=== PATIENT | female | born 1950 | race Caucasian/White ===

== ENCOUNTER 2017-03-03 12:33 | Emergency (ER) | payer BC ==
[~2017-03-03] VITALS: Ht 157.5 cm; Wt 75.0 kg
[2017-03-03 13:26] LABS: EOS # 0.1 (0.04-0.40); EOS % 0.6 % (1.0-5.0); HEMATOCRIT 45.5 % (37.0-47.0); LYMPH# 1.3 (1.50-4.00); MEAN CELL VOLUME 89 fl (78-100); MEAN CORPUSCULAR HEMOGLOBIN 29 pg (27-31); MEAN CORPUSCULAR HGB CONC 33 g/dL (33-37); MEAN PLATELET VOLUME 8.7 fl (7.4-10.4); MONO # 0.8 (0.20-0.80); NEU # 6.6 (1.40-6.50); PLATELET COUNT 258 K/mm3 (130-400); RED BLOOD COUNT 5.13 M/mm3 (4.10-5.30); RED CELL DISTRIBUTION WIDTH 13.9 % (11.5-14.5); WHITE BLOOD COUNT 8.8 K/mm3 (4.8-10.8)
[2017-03-03] MEDS ORDERED: GLUCOPHAGE PO (13:35)
[2017-03-03 13:39] LABS: ALBUMIN 4.3 g/dL (3.5-5.0); BUN/CREATININE RATIO 22.3 (6.0-26.0); CALCIUM 9.3 mg/dL (8.4-10.2); TOTAL BILIRUBIN 0.7 mg/dL (0.2-1.3)
[2017-03-03] MEDS ORDERED: SERTRALINE50 MG PO (13:39)
[2017-03-03] MEDS ORDERED: HCTZ 25MG25 MG PO (13:40)
[2017-03-03] MEDS ORDERED: SIMVASTATIN20 M1 PO (13:40)
[2017-03-03] MEDS ORDERED: METOPROLOL SUCC50 M1 PO (13:41)
[2017-03-03] MEDS ORDERED: GUAIFEN-CODEIN118 ML PO (14:16)
[2017-03-03] MEDS ORDERED: PREDNISONE20 M1 PO (14:16)
[2017-03-03] MEDS ORDERED: CEFDINIR300 MG PO (14:16)
[2017-03-03] MEDS ORDERED: IPRATROPIUM BROM3 M1 IH (14:30)
[2017-03-03 16:23] VITALS: BP 146/66
== END 2017-03-03 15:35 | disposition home or self-care (01) ==
LOC: ED 12:33
PROVIDERS: Family Medicine
DX: J44.1 Chronic obstructive pulmonary disease with (acute) exacerbation (principal); R09.02 Hypoxemia; E11.9 Type 2 diabetes mellitus without complications; I10 Essential (primary) hypertension; Z87.891 Personal history of nicotine dependence; Z88.0 Allergy status to penicillin; Z79.84 Long term (current) use of oral hypoglycemic drugs
CPT/HCPCS: J0696; J1040

== ENCOUNTER 2017-03-05 12:31 | Inpatient (IN) | payer BC ==
[~2017-03-05] VITALS: Ht 157.5 cm; Wt 71.5 kg
[~2017-03-05 12:31] MED LIST: CEFDINIR300 MG PO; GLUCOPHAGE PO; GUAIFEN-CODEIN118 ML PO; HCTZ 25MG25 MG PO; IPRATROPIUM BROM3 M1 IH; METOPROLOL SUCC50 M1 PO; PREDNISONE20 M1 PO; SERTRALINE50 MG PO; SIMVASTATIN20 M1 PO
[2017-03-05 15:01] LABS: HEMATOCRIT 49.3 % (37.0-47.0); HEMOGLOBIN 15.9 g/dL (12.5-16.0); MEAN CELL VOLUME 90 fl (78-100); MEAN CORPUSCULAR HEMOGLOBIN 29 pg (27-31); MEAN CORPUSCULAR HGB CONC 32 g/dL (33-37); MEAN PLATELET VOLUME 9.7 fl (7.4-10.4); PLATELET COUNT 233 K/mm3 (130-400); RED BLOOD COUNT 5.51 M/mm3 (4.10-5.30); RED CELL DISTRIBUTION WIDTH 13.9 % (11.5-14.5); WHITE BLOOD COUNT 8.3 K/mm3 (4.8-10.8)
[2017-03-05 15:10] LABS: ALBUMIN 4.3 g/dL (3.5-5.0); BUN/CREATININE RATIO 38.3 (6.0-26.0); CALCIUM 9.6 mg/dL (8.4-10.2); POTASSIUM 4.2 mmol/L (3.6-5.0); TOTAL BILIRUBIN 0.6 mg/dL (0.2-1.3); TOTAL PROTEIN 8.3 g/dL (6.3-8.2)
[2017-03-05 15:43] LABS: LYMPHOCYTE 13 % (20-51); MONOCYTE 1 % (3-10); NEUTROPHILS 86 % (42-75)
[2017-03-05 16:01] LABS: URINE APPEARANCE HAZY; URINE COLOR YELLOW; URINE PROTEIN(semi-quant) TRACE mg/dL (NEGATIVE)
[2017-03-05 16:02] LABS: URINE BILIRUBIN NEGATIVE (NEGATIVE); URINE BLOOD TRACE (NEGATIVE); URINE GLUCOSE NEGATIVE (NEGATIVE); URINE KETONE 1+ (NEGATIVE); URINE LEUKOCYTE ESTERASE TRACE (NEGATIVE); URINE NITRATE NEGATIVE (NEGATIVE); URINE UROBILINOGEN NORMAL (NORMAL)
[2017-03-05 16:58] VITALS: BP 130/59
[2017-03-05 19:28] VITALS: BP 160/66
[2017-03-05 20:58] VITALS: BP 160/66
[2017-03-05 23:45] VITALS: BP 165/73
[2017-03-06 03:20] VITALS: BP 133/61
[2017-03-06 06:25] VITALS: BP 141/66
[2017-03-06 11:01] VITALS: BP 135/47
[2017-03-06 15:09] VITALS: BP 144/71
[2017-03-06 18:24] VITALS: BP 146/56
[2017-03-07] VITALS (7 sets, daily range): BP systolic 113–164; BP diastolic 52–74
[2017-03-07 09:53] LABS: HEMATOCRIT 45.2 % (37.0-47.0); HEMOGLOBIN 14.5 g/dL (12.5-16.0); LYMPH# 1.4 (1.50-4.00); MEAN CELL VOLUME 90 fl (78-100); MEAN CORPUSCULAR HEMOGLOBIN 29 pg (27-31); MEAN CORPUSCULAR HGB CONC 32 g/dL (33-37); MEAN PLATELET VOLUME 10.1 fl (7.4-10.4); MONO # 0.6 (0.20-0.80); NEU # 6.8 (1.40-6.50); PLATELET COUNT 245 K/mm3 (130-400); RED BLOOD COUNT 5.01 M/mm3 (4.10-5.30); RED CELL DISTRIBUTION WIDTH 13.6 % (11.5-14.5); WHITE BLOOD COUNT 8.8 K/mm3 (4.8-10.8)
[2017-03-07 09:59] LABS: BUN/CREATININE RATIO 45.3 (6.0-26.0); CALCIUM 9.3 mg/dL (8.4-10.2); POTASSIUM 3.9 mmol/L (3.6-5.0)
[2017-03-08 02:26] VITALS: BP 164/82
[2017-03-08 07:00] VITALS: BP 164/78
[2017-03-08 10:51] VITALS: BP 152/56
[2017-03-08 15:04] VITALS: BP 151/59
[2017-03-08 17:40] VITALS: BP 143/55
[2017-03-08 23:21] VITALS: BP 136/60
[2017-03-09 03:23] VITALS: BP 176/91
[2017-03-09 06:23] VITALS: BP 171/69
[2017-03-09 11:24] VITALS: BP 168/63
[2017-03-09 15:00] VITALS: BP 163/72
[2017-03-09 18:58] VITALS: BP 161/63
[2017-03-09 23:11] VITALS: BP 163/63
[2017-03-10 03:04] VITALS: BP 168/87
[2017-03-10 06:43] VITALS: BP 176/85
[2017-03-10 11:30] VITALS: BP 160/92
[2017-03-10 15:28] VITALS: BP 159/73
[2017-03-10 18:58] VITALS: BP 155/62
[2017-03-10 23:10] VITALS: BP 187/82
[2017-03-11 03:15] VITALS: BP 148/72
[2017-03-11 06:46] VITALS: BP 187/86
[2017-03-11 11:20] VITALS: BP 171/70
[2017-03-11] MEDS ORDERED: PREDNISONE20 M1 PO (14:48)
[2017-03-11] MEDS ORDERED: ALBUTEROL2.5 MG/3 M IH (14:49)
[2017-03-11] MEDS ORDERED: [UNRECOGNIZED DRUG - SUPPLY] MC (14:58)
[2017-03-11] MEDS ORDERED: NEB INH (14:58)
[2017-03-11 15:00] VITALS: BP 167/73
[2017-03-11] MEDS ORDERED: ATIVAN0.5 MG PO (15:12)
== END 2017-03-11 16:20 | disposition home health service (06) | DRG 190 ==
LOC: ED 12:31 → MED/SURG 17:29
PROVIDERS: ADMIT Physician Assistant
DX: J44.0 Chronic obstructive pulmonary disease with (acute) lower respiratory infection (principal); J18.9 Pneumonia, unspecified organism; J96.11 Chronic respiratory failure with hypoxia; J44.1 Chronic obstructive pulmonary disease with (acute) exacerbation; I10 Essential (primary) hypertension; E11.9 Type 2 diabetes mellitus without complications; F17.210 Nicotine dependence, cigarettes, uncomplicated; R19.7 Diarrhea, unspecified; Z99.81 Dependence on supplemental oxygen; Z88.0 Allergy status to penicillin
CPT/HCPCS: J0456; J0696; J1650; J2060; J2270; J2930; J7030; J7050; J7512; Q9967

== ENCOUNTER → 2020-12-02 | Outpatient (CLI) | payer BC ==
[~2020-12-02] MED LIST changes: +ALBUTEROL2.5 MG/3 M IH; +ATIVAN0.5 MG PO; +INSULIN SYRING1 EA27 MC; +LEVEMIR FLEX100 U/ML SQ; +LEVEMIR100 U/M1 SQ; +MUCUS RELIEF400 M1 PO; +NEB INH; +PREDNISONE20 MG PO; +PROAIR HFA0.09 MG/AC IH; +SYMBICORT1 AE3 IH; +ZITHROMAX500 M2 PO; +[UNRECOGNIZED DRUG - SUPPLY] MC
[2020-12-02 12:44] LABS: BASO # 0.04 (0.02-0.10); EOS # 0.33 (0.04-0.40); EOS % 2.7 % (1.0-5.0); HEMATOCRIT 48.6 % (37.0-47.0); HEMOGLOBIN 16.1 g/dL (12.5-16.0); MEAN CELL VOLUME 88 fl (78-100); MEAN CORPUSCULAR HEMOGLOBIN 29 pg (27-31); MEAN CORPUSCULAR HGB CONC 33 g/dL (33-37); MEAN PLATELET VOLUME 8.8 fl (7.4-10.4); MONO # 0.79 (0.20-0.80); NEU # 7.68 (1.40-6.50); PLATELET COUNT 256 K/mm3 (130-400); RED BLOOD COUNT 5.51 M/mm3 (4.10-5.30); WHITE BLOOD COUNT 12.3 K/mm3 (4.8-10.8)
[2020-12-02 12:49] LABS: ALBUMIN 3.8 g/dL (3.4-4.8); POTASSIUM 4.1 mmol/L (3.5-5.1)
[2020-12-02 12:50] LABS: CALCIUM 9.9 mg/dL (8.3-10.5)
[2020-12-02 12:52] LABS: TOTAL PROTEIN 7.1 g/dL (6.2-8.1)
[2020-12-02 12:53] LABS: TOTAL BILIRUBIN 0.6 mg/dL (0.2-1.2)
== END ==
LOC: LAB 12:13
PROVIDERS: Family Medicine
DX: Z00.00 Encounter for general adult medical examination without abnormal findings (principal); E78.5 Hyperlipidemia, unspecified; E13.9 Other specified diabetes mellitus without complications

== ENCOUNTER → 2021-06-30 | Outpatient (CLI) | payer BC ==
[2021-06-30 14:32] LABS: BASO # 0.04 K/mm3 (0.02-0.10); EOS # 0.24 K/mm3 (0.04-0.40); EOS % 2.3 % (1.0-5.0); HEMATOCRIT 46.9 % (37.0-47.0); HEMOGLOBIN 15.5 g/dL (12.5-16.0); LYMPH# 2.95 K/mm3 (1.50-4.00); MEAN CELL VOLUME 89 fl (78-100); MEAN CORPUSCULAR HEMOGLOBIN 29 pg (27-31); MEAN CORPUSCULAR HGB CONC 33 g/dL (33-37); MEAN PLATELET VOLUME 8.7 fl (7.4-10.4); NEU # 6.59 K/mm3 (1.40-6.50); PLATELET COUNT 243 K/mm3 (130-400); RED CELL DISTRIBUTION WIDTH 13.2 % (11.5-14.5); WHITE BLOOD COUNT 10.6 K/mm3 (4.8-10.8)
[2021-06-30 14:40] LABS: POTASSIUM 4.2 mmol/L (3.5-5.1)
[2021-06-30 14:41] LABS: CALCIUM 9.9 mg/dL (8.3-10.5)
[2021-06-30 14:43] LABS: TOTAL PROTEIN 7.2 g/dL (6.2-8.1)
[2021-06-30 14:45] LABS: TOTAL BILIRUBIN 0.5 mg/dL (0.2-1.2)
== END ==
LOC: LAB 14:14
PROVIDERS: Family Medicine
DX: Z00.00 Encounter for general adult medical examination without abnormal findings (principal); E78.5 Hyperlipidemia, unspecified; F41.9 Anxiety disorder, unspecified; J44.9 Chronic obstructive pulmonary disease, unspecified; E13.9 Other specified diabetes mellitus without complications; I10 Essential (primary) hypertension; E66.9 Obesity, unspecified; R10.30 Lower abdominal pain, unspecified; Z72.0 Tobacco use; Z86.79 Personal history of other diseases of the circulatory system

== ENCOUNTER 2021-12-28 15:11 | Emergency (ER) | payer BC ==
[~2021-12-28] VITALS: Wt 72.5 kg
[2021-12-28] MEDS ORDERED: WELLBUTRIN XL300 M1 PO (15:47)
[2021-12-28 15:48] LABS: BASO # 0.03 K/mm3 (0.02-0.10); EOS # 0.14 K/mm3 (0.04-0.40); EOS % 1.1 % (1.0-5.0); HEMATOCRIT 48.6 % (37.0-47.0); LYMPH# 2.39 K/mm3 (1.50-4.00); MEAN CELL VOLUME 94 fl (78-100); MEAN CORPUSCULAR HEMOGLOBIN 29 pg (27-31); MEAN CORPUSCULAR HGB CONC 31 g/dL (33-37); MEAN PLATELET VOLUME 9.4 fl (7.4-10.4); MONO # 0.82 K/mm3 (0.20-0.80); PLATELET COUNT 206 K/mm3 (130-400); RED BLOOD COUNT 5.17 M/mm3 (4.10-5.30); RED CELL DISTRIBUTION WIDTH 14.7 % (11.5-14.5); WHITE BLOOD COUNT 12.5 K/mm3 (4.8-10.8)
[2021-12-28] MEDS ORDERED: VALIUM 5MG T5 MG/TAB PO (15:48)
[2021-12-28] MEDS ORDERED: SERTRALINE HYD100 MG PO (15:49)
[2021-12-28 16:09] LABS: ALBUMIN 3.7 g/dL (3.4-4.8); POTASSIUM 4.1 mmol/L (3.5-5.1); SODIUM 141 mmol/L (136-145)
[2021-12-28 16:10] LABS: CALCIUM 9.3 mg/dL (8.3-10.5)
[2021-12-28 16:11] LABS: GLUCOSE 195 mg/dL (65-105); TOTAL PROTEIN 7.1 g/dL (6.2-8.1)
[2021-12-28 16:12] LABS: CARBON DIOXIDE 32 mmol/L (23-31)
[2021-12-28 16:13] LABS: TOTAL BILIRUBIN 0.6 mg/dL (0.2-1.2)
[2021-12-28 16:16] LABS: AST-SGOT 24 U/L (5-34); D-DIMER 0.71 mg/L FEU (0.15-0.50)
[2021-12-28 16:18] LABS: ALT/SGPT 20 U/L (0-55)
[2021-12-28 16:29] LABS: TROPONIN-I < 0.030 ng/mL (<0.030)
[2021-12-28 19:30] VITALS: BP 167/88
== END 2021-12-28 19:30 | disposition home or self-care (01) ==
LOC: ED 15:11
PROVIDERS: Physician Assistant
DX: I11.0 Hypertensive heart disease with heart failure (principal); I50.9 Heart failure, unspecified; J44.9 Chronic obstructive pulmonary disease, unspecified; J90 Pleural effusion, not elsewhere classified; R59.1 Generalized enlarged lymph nodes; M79.89 Other specified soft tissue disorders; R09.02 Hypoxemia; J84.9 Interstitial pulmonary disease, unspecified; R79.89 Other specified abnormal findings of blood chemistry; Z20.822 Contact with and (suspected) exposure to COVID-19; Z99.81 Dependence on supplemental oxygen
CPT/HCPCS: J0696; J1940; J2930; J7050; Q9967